=== PATIENT | female | born 2000 | race African-American/Black ===

== ENCOUNTER 2019-05-08 16:11 | Inpatient (IN) ==
[2019-05-08 16:56] LABS: Cocaine Ur Negative (NEGATIVE); Urine Barbiturate Negative (NEGATIVE); Urine Benzodiazepines Negative (NEGATIVE); Urine Opiates Negative (NEGATIVE); Urine PCP Negative (NEGATIVE); Urine THC Negative (NEGATIVE)
[2019-05-08] MEDS ORDERED: OXYTOCIN/DEXTROSE 5%-WATER 30 UNITS/500 ML BAG IV ONE ×2 (17:52→22:34)
[2019-05-08] MEDS ORDERED: ONDANSETRON 4 MG TAB.RAPDIS PO PRN (17:52)
[2019-05-08] MEDS ORDERED: LIDOCAINE HCL 50 ML VIAL PERI PRN (17:52)
[2019-05-08] MEDS ORDERED: RINGER'S SOLUTION,LACTATED 1,000 ML IV PRN (17:52)
[2019-05-08] MEDS ORDERED: PENICILLIN G POTASSIUM 5 MILLIONUNT in DEXTROSE 5 % IN WATER 100 ML IV ONE ×2 (17:52)
[2019-05-08] MEDS ORDERED: NALBUPHINE HCL 10 MG/ML AMPUL IV PRN ×2 (17:52)
[2019-05-08] MEDS ORDERED: ONDANSETRON HCL/PF 2 MG/ML VIAL IV PRN (17:54)
[2019-05-08] MEDS ORDERED: NALOXONE HCL 1 MG/1 ML SYRG IV PRN (17:54)
[2019-05-08] MEDS ORDERED: BUPIVACAINE HCL/0.9 % NACL/PF 250 ML EP PRN (17:54)
[2019-05-08] MEDS ORDERED: BUPIVACAINE HCL/PF 30 ML VIAL EP SCH (18:00)
[2019-05-08] MEDS: RINGER'S SOLUTION,LACTATED 1,000 ML IV ONE ×2 (18:03→18:24)
--- NOTE | 2019-05-08 18:27 | ANES ---
Anesthesia Pre Procedure Eval Vitals/Labs: Last Vital Signs Temp 36.6 C 05/08/19 18:25 Pulse 88 05/08/19 18:25 Resp 16 05/08/19 18:25 BP 126/82 05/08/19 18:25 Pulse Ox 100 05/08/19 18:25 HOME MEDICATIONS NK 05/03/19 [Last Taken Unknown] Allergies/Adverse Reactions: Allergies Allergy/AdvReac Type Severity Reaction Status Date / Time No Known Allergies Allergy Verified 05/08/19 16:57 - Planned Procedure Planned Procedure: Labor epidural Medication List Reviewed:: Yes Allergies Verified: Yes Medical History (Updated 05/03/19 @ 11:12 by Laurie Daniel MD) Anemia affecting History of gonorrhea Onset Date: ~2017 Surgical History (Updated 04/05/19 @ 09:04 by Saritha Quinones LPN) No pertinent past surgical history Family History (Updated 04/05/19 @ 09:05 by Saritha Quinones LPN) Father Seizure disorder Mother Seizure disorder Son Seizure disorder - Family Anesthesia History Family History:: no untoward family reactions to anesthesia, no familial bleeding tendencies, no family history of clotting disorders, no family history of premature - Anesthesia Assessment and Plan ASA Class: PS, II Anesthesia Type Plan: Epidural
--- NOTE | 2019-05-08 18:43 | HP ---
Chief Complaint - Chief Complaint Date of Service: 05/08/19 Time of Service: 18:37 Chief Complaint: Labor History of Present Illness: The patient is a 19 year old @ 38w 2d by a 32w 5d ultrasound who presents to labor and delivery in labor. She presented at fingertip and then progressed to 4-5 cm. She reports regular ctx. She denies vb or lof. Fetus is active. Medical History (Updated 05/03/19 @ 11:12 by Laurie Daniel MD) Anemia affecting History of gonorrhea Onset Date: ~2018 Surgical History: Surgical History (Updated 04/05/19 @ 09:04 by Saritha Quinones LPN) No pertinent past surgical history Family History: Family History (Updated 04/05/19 @ 09:05 by Saritha Quinones LPN) Father Seizure disorder Mother Seizure disorder Son Seizure disorder Social History: (Last Reviewed 05/08/19 @ 18:40 by Laurie Daniel MD) Social History: Marital status: Single household members: family current occupational status: unemployed Highest education level completed: 11th grade Service: No Tobacco: Smoking Status: Current every day smoker tobacco type: cigarettes Smoking cigarettes per day: 2 Alcohol: alcohol intake: never Substance Use: substance use type: former substance user, marijuana, other details: quit 01/2019 Dietary Habits: caffeine: Yes caffeine comment: occasionally Type: carbonated beverages, tea, coffee Review Of Systems (GEN) - Review of Systems Generalized/Overall Review: Present: No Symptoms Reported EENTM: Present: No Symptoms Reported Respiratory: Present: No Symptoms Reported Cardiac: Present: No Symptoms Reported Abdominal: Present: No Symptoms Reported Genitourinary: Present: Other - regular contractions Musculoskeletal: Present: No Symptoms Reported Neurological: Present: No Symptoms Reported Skin: Present: No Symptoms Reported Endocrine: Present: No Symptoms Reported Allergies/Adverse Reactions: Allergies Allergy/AdvReac Type Severity Reaction Status Date / Time No Known Allergies Allergy Verified 05/08/19 16:57 Home Medications: HOME MEDICATIONS NK 05/03/19 [Last Taken Unknown] Exam - Exam Vital Signs: Vital Signs - Last Taken Temp 36.6 C 05/08/19 18:25 Pulse 88 05/08/19 18:25 Resp 16 05/08/19 18:25 BP 126/82 05/08/19 18:25 Pulse Ox 100 05/08/19 18:25 Constitutional: Present: Alert, Oriented x3, Cooperative Respiratory: Present: lungs clear, normal breath sounds Cardiovascular/Chest: Present: regular rate, rhythm, no murmur Abdomen: Present: soft, nontender, nondistended Extremity: Present: non-tender, no calf tenderness Skin Exam: Present: normal color, warm/dry, no cyanosis Appearance: Present: appropriate appearance Eye contact: Present: cooperative Thoughts: Present: normal thought pattern Diagnostic Studies: Laboratory Results Negative (NEGATIVE) 05/08/19 16:30 Negative (NEGATIVE) 05/08/19 16:30 Ur Phencyclidine Scrn Negative (NEGATIVE) 05/08/19 16:30 Urine Amphetamine Negative (NEGATIVE) 05/08/19 16:30 U Benzodiazepines Scrn Negative (NEGATIVE) 05/08/19 16:30 Negative (NEGATIVE) 05/08/19 16:30 Negative (NEGATIVE) 05/08/19 16:30 Assessment/Plan - Narrative Narrative: 19 year old @ 38w 2d 1. Labor: expectant management. The patient desires an epidural 2. GBS positive: intrapartum prophylaxis 3. Anemia FHT cat 1
--- NOTE | 2019-05-08 18:45 | ANES ---
Anesthesia Procedure Note Procedure Note: ANESTHESIA PROCEDURE NOTE Date of Procedure: 05/08/2019. Time of procedure: 1830. Performed by: Mike Rivera CRNA Zoogler: None. Preprocedure diagnosis: Active labor. Post procedure diagnosis: Same. Procedure: Insertion of labor epidural. Indications: The patient is a 19-year-old female in active labor requesting labor epidural for pain management. Findings: See below. Details of the procedure: The patient was placed in a sitting position. DuraPrep as well as Betadine swabs X3 was applied to the patient's back. Patient was then draped in a sterile fashion. Lidocaine 1% was infiltrated to the skin and subcutaneous tissues at the level of the L3-4 interspace. The epidural space was identified using a 18-gauge Tuohy needle with [id number] technique. Epidural catheter was inserted to a depth of 13 centimeters at skin. Negative test dose was elicited using 3 mL of 1.5% preservative-free lidocaine plus epinephrine 1 200,000. The epidural catheter was then taped and secured in place. A loading dose of 8 mL of 0.25% preservative-free bupivacaine was administered to the epidural catheter after negative aspiration for blood and CSF. EBL: Minimal. Fluids: N/A. Specimen: N/A. Post procedure condition: The patient tolerated the procedure well. No complications were noted. Thank you for this consultation. Mike Rivera CRNA
--- NOTE | 2019-05-08 18:45 | ANES ---
Post Anesthesia Assessment - Vital Signs Vitals: Last Vital Signs Temp 36.6 C 05/08/19 18:25 Pulse 88 05/08/19 18:25 Resp 16 05/08/19 18:25 BP 126/82 05/08/19 18:25 Pulse Ox 100 05/08/19 18:25 Airway Patency: Normal - Mental Status Level Of Consciousness: Awake - N/V Assessment Nausea/Vomiting Presence: None Dehydration:: No
--- NOTE | 2019-05-08 20:13 | PN ---
Progess Note - Interim Date: 05/08/19 Time: 20:11 Narrative: 05/08/19 20:11 The patient is comfortable with an epidural FHT begun exhibiting early decelerations The patient's cervix was checked and it was 5-6/80/-2 AROM for clear fluid Start pitocin for augmentation of labor The patient and her family were updated with the plan of care
--- NOTE | 2019-05-08 21:16 | PN ---
Progess Note - Interim Date: 05/08/19 Time: 21:14 Narrative: 05/08/19 21:15 FSE placed due to patient moving so much that cannot keep baby on the monitor. ctx are very regular s/p AROM and pitocin is off. FHT is cat 1
[2019-05-08] MEDS ORDERED: PENICILLIN G POTASSIUM 2.5 MILLIONUNT in DEXTROSE 5 % IN WATER 100 ML IV SCH ×2 (21:52)
[2019-05-08] MEDS ORDERED: diphenhydrAMINE HCL 25 MG CAPSULE PO PRN (22:34)
[2019-05-08] MEDS ORDERED: HYDROCORTISONE 30 APPL TUBE TP PRN (22:34)
[2019-05-08] MEDS ORDERED: BENZOCAINE/MENTHOL 81 SPRAY CAN TP PRN (22:34)
[2019-05-08] MEDS ORDERED: HYDROcodone/ACETAMINOPHEN 1 EACH TABLET PO PRN ×2 (22:34)
[2019-05-08] MEDS ORDERED: GLYCERIN/WITCH HAZEL LEAF 40 APPL BOX TP PRN (22:34)
[2019-05-08] MEDS ORDERED: SENNOSIDES 8.6 MG TABLET PO PRN (22:34)
[2019-05-08] MEDS ORDERED: BISACODYL 10 MG SUPP.RECT RC PRN (22:34)
--- NOTE | 2019-05-08 22:34 | OR ---
Operative Report - Dictated Report Narrative: Date of delivery: 05/08/2019 Time of delivery: 2209 Gender: female weight: 2916 grams APGARS: 9/9 EFW (clinical): 3200 grams EFW (US): NA Diabetes: No 2nd stage length: 13 minutes Head body interval: 50 seconds Anesthesia: epidural Position of head at delivery: direct OA The right shoulder was anterior Manuevers used: Eric (did not work) and suprapubic pressure (worked) The was moving all extremities at Mother's condition: excellent Lacerations: none EBL: 100 mL The mother was informed of dystocia and potential sequelae Counseling for future pregnacies performed Complications: shoulder dystocia Specimens: placenta to pathology Detailed description of the procedure: The patient is a 19 year old @ 38w 2d who presented to labor and delivery in labor. On initial presentation the FHT showed two variable decelerations but subsequently the tracing was cat 1. The tracing then developed variable and early decelerations and a decision was made to rupture membranes. Once membranes were ruptured the patient progressed to complete dilation. She delivered a viable female infant over an intact perineum. The head at deliver was direct OA and then rotated to MONIQUE. A shoulder dystocia was called. The Eric manuever was performed and this did not result in delivery. Suprapubic pressure was applied and this allowed for atramautic delivery of the anterior shoulder followed by the rest of the . The total length of the shoulder dystocia was 50 seconds. The cord was clamped and cut. Terminal meconium was noted. The placenta was delivered by expression and appeared intact. History for Definition: * The number of deliveries resulting in a live the patient experienced prior to current hospitalization * The previous delivery of live twins or any live multiple gestation is considered one live event. *If primagravida or nulliparous is documented select zero for the number of previous live births. Live Events: 1
[2019-05-09] MEDS: DOCUSATE SODIUM 100 MG CAPSULE PO SCH ×2 (08:42→20:49)
[2019-05-09] MEDS: IBUPROFEN 800 MG TABLET PO PRN ×2 (08:42→17:42)
[2019-05-09] MEDS ORDERED: MEDROXYPROGESTERONE ACET 150 MG/ML SYRG IM ONE (14:00)
--- NOTE | 2019-05-09 14:00 | PN ---
Subjective - Date and Time Seen Date: 05/09/19 Time: 09:00 Subjective Narrative: Patient without complaints. Bleeding is minimal. Objective Objective Narrative: See vital signs - Review of Systems Generalized/Overall Review: Reports: No Symptoms Reported Misc: All systems neg except as marked - Vitals Vitals: Last Vital Signs Temp 36.7 C 05/09/19 06:48 Pulse 78 05/09/19 06:48 Resp 18 05/09/19 06:48 BP 111/57 05/09/19 06:48 Pulse Ox 99 05/09/19 06:48 - Exam Constitutional: Present: Alert, Oriented x3, Cooperative, No distress Abdomen: Present: soft, nontender, nondistended - fundus is firm Extremity: Present: non-tender, no calf tenderness Skin Exam: Present: normal color, warm/dry, no cyanosis Appearance: Present: appropriate appearance Eye contact: Present: cooperative Thoughts: Present: normal thought pattern Cauti Physician Documentation - Urinary Catheter Management Urethral ([place]) Urethral Indwelling: No Date of Insertion: 05/08/19 Time of Insertion: 19:07 Date of Removal: 05/08/19 Time of Removal: 21:57 Assessment/Plan Plan Narrative: PPD 1 s/p Doing well Shoulder dystocia discussed in detail with the patient Depo-Provera for contraception Discharge tomorrow
[2019-05-10 07:37] VITALS: BP 108/57
[2019-05-10] MEDS: DOCUSATE SODIUM 100 MG CAPSULE PO SCH (10:32)
--- NOTE | 2019-05-10 11:51 | PN ---
Subjective - Date and Time Seen Date: 05/10/19 Time: 09:00 Subjective Narrative: Patient without complaints. Bleeding is minimal. Objective Objective Narrative: See vital signs - Review of Systems Generalized/Overall Review: Reports: No Symptoms Reported Misc: All systems neg except as marked - Vitals Vitals: Last Vital Signs Temp 36.2 C 05/10/19 07:35 Pulse 72 05/10/19 07:35 Resp 18 05/10/19 07:35 BP 108/57 05/10/19 07:35 Pulse Ox 99 05/10/19 07:35 - Exam Constitutional: Present: Alert, Oriented x3, Cooperative, No distress Abdomen: Present: soft, nontender, nondistended - fundus is firm Extremity: Present: non-tender, no calf tenderness Skin Exam: Present: normal color, warm/dry, no cyanosis Appearance: Present: appropriate appearance Eye contact: Present: cooperative Thoughts: Present: normal thought pattern Cauti Physician Documentation - Urinary Catheter Management Urethral ([place]) Urethral Indwelling: No Date of Insertion: 05/08/19 Time of Insertion: 19:07 Date of Removal: 05/08/19 Time of Removal: 21:57 Assessment/Plan Plan Narrative: PPD 2 s/p Doing well Discharge today Follow-up in 4 weeks
== END 2019-05-10 12:45 | disposition home or self-care (01) | DRG 806 ==
LOC: OBCLINIC 16:11 → OB 17:50
PROVIDERS: ADMIT Obstetrics & Gynecology; ATTEND Obstetrics & Gynecology
CPT/HCPCS: 59025; 80307; 88307